=== PATIENT | male | born 1970 | race Caucasian/White ===

== ENCOUNTER 2017-03-13 07:34 | Day surgery (SDC) | payer SELFPAY ==
--- NOTE | ~2017-03-13 | EGD ---
EGD REPORT [facility] [address] [address] NAME: GONZALES CARDENAS : [birth year] STATUS : REG [facility]#: [id number] AGE: 46 ADM/REG DATE : 03/13/17 MR#: [id number] REPORT SERV DATE: 03/13/17 DICTATED BY: TATA WATT DATE: 03/13/17 REPORT STATUS : Draft [facility]: [facility] DATE: 03/13/17 Pulmonology Patient Name: Gonzales Cardenas Procedure Date: 03/13/2017 10:04 AM Date of : 1970 Attending MD: JERICA WATT MD Procedure Date No Time: 03/13/2017 Procedure: Flexible/EBUS and Rigid Bronchoscopy with stent placement Indications: Right hilar lung mass, central airways obstruction, hemoptysis Providers: JERICA WATT MD Referring MD: IVIS SANCHEZ Medicines: Lidocaine 2% 20 mL Complications: No immediate complications. Estimated blood loss: None Procedure: Pre-Anesthesia Assessment: - ASA Grade Assessment: III - A patient with severe systemic disease. - After reviewing the risks and benefits, the patient was deemed in satisfactory condition to undergo the procedure. - A History and Physical has been performed. Patient meds and allergies have been reviewed. The risks and benefits of the procedure and the sedation options and risks were discussed with the patient. All questions were answered and informed consent was obtained. Patient identification and proposed procedure were verified prior to the procedure by the physician and the nurse in the procedure room. Mental Status Examination: alert and oriented. Airway Examination: normal oropharyngeal airway. Respiratory Examination: clear to auscultation and poor air movement. CV Examination: normal and RRR, no murmurs, no S3 or S4. ASA Grade Assessment: III - A patient with severe systemic disease. After reviewing the risks and benefits, the patient was deemed in satisfactory condition to undergo the procedure. The anesthesia plan was to use general anesthesia. Immediately prior to administration of medications, the patient was re-assessed for adequacy to receive sedatives. The heart rate, respiratory rate, oxygen saturations, blood pressure, adequacy of pulmonary ventilation, and response to care were monitored throughout the procedure. The physical status of the patient was re-assessed after the procedure. After obtaining informed consent, the [id number] EGD REPORT [address] [address] NAME: GONZALES CARDENAS : [birth year] STATUS : REG [facility] [place] [place]#: [id number] AGE: 46 ADM/REG DATE : 03/13/17 MR#: [id number] REPORT SERV DATE: 03/13/17 DICTATED BY: TATA WATT DATE: 03/13/17 REPORT STATUS : Draft TRANSCRIBED BY: [employer] [facility] DATE: 03/13/17 was introduced through the mouth, via the endotracheal tube (the patient was intubated for the procedure) and advanced to the tracheobronchial tree. the Bronchoscope was introduced through the and advanced to the. The procedure was accomplished without difficulty. The patient tolerated the procedure well. Findings: The endotracheal tube is in good position. The visualized portion of the trachea is of normal caliber. The merry is sharp. The tracheobronchial tree was examined to at least the first subsegmental level. Endobronchial disease noted throughout the CHEMA and RBI with complete obliteration of the RUL. EBUS TBNA of lymph node level 7 x 9 passes for cytology EBUS TBNA of lymph node level 4R x 6 passes for cytology Brushings were obtained in the right mainstem bronchus of the lung and sent for routine cytology. One sample was obtained. Endobronchial biopsies were performed in the right mainstem bronchus of the lung using a forceps and sent for histopathology examination. Four samples were obtained. Bronchoalveolar lavage was performed in the right upper lobe of the lung and sent for routine cytology. 60 mL of fluid were instilled. 20 mL were returned. The return was blood-tinged and cellular. The FiO2 was lowered to less than 40% and argon plasma coagulation therapy (0.8 L/min, 15 George) was performed for destruction of tissue and hemostasis. Using Fieldglass CRE balloons 8-9-10 and 10-11-12 the airway was dilated to 12 mm. The FiO2 was then raised to 100% and the patient was then reintubated with Rigid Dumon 12 mm bronchoscope in the usual atraumatic fashion and selectively advanced into the proximal right mainstem. A custom 12 x 40 silicone stent was placed but buckled at the distal portion despite several attempts at balloon dilation. The silicone stent was then removed and a Kidamom Endotek 10 x 40 hybrid stent was placed. Pictures were taken at the close of the case and patient was then reintubated with 8.5 ETT. Impression: Rapid On-Site Evaluation (LLOYD): Preliminary cytology is POSITIVE FOR NON SMALL CELL LUNG CANCER (final results are pending). Recommendation: - Await test results. - Chest X-ray post-procedure. - PET scan. - MRI of the brain with and without contrast - Thoracic Surgical, Medical and Radiation Oncology Consults - PFTs to assess operability - Follow up in our pulmonary clinic - Rx for mandatory nebs for albuterol and mucomyst. Attending Participation: I personally performed the entire procedure. EGD REPORT [facility] [address] [address] NAME: GONZALES CARDENAS : [birth year] STATUS : REG [facility] [place]#: [id number] AGE: 46 ADM/REG DATE : 03/13/17 MR#: [id number] REPORT SERV DATE: 03/13/17 DICTATED BY: TATA WATT DATE: 03/13/17 REPORT STATUS : Draft TRANSCRIBED BY: [employer] DATE: 03/13/17 JERICA WATT MD 03/13/2017 12:53 PM This report has been signed electronically. Number of Addenda: 0 Note Initiated On: 03/13/2017 10:04 AM [address] [address]
--- NOTE | ~2017-03-13 | CN ---
Consultation Report [place] [id number] [facility] [place] [address] NAME: GONZALES CARDENAS : [birth year] STATUS : REG [facility] [place] PAT#: [id number] AGE: 46 ADM/REG DATE : 03/13/17 MR#: [id number] REPORT SERV DATE: 03/13/17 DICTATED BY: SONY WATT DATE: 03/13/17 REPORT STATUS : Draft TRANSCRIBED BY: MODL DATE: 03/13/17 CONSULTATION DATE OF CONSULTATION: Dear Dr. Maya: Thank you for requesting my opinion regarding evaluation and management of Mr. Gonzales Cardenas' right hilar lung mass and hemoptysis. Mr. Cardenas is a pleasant 46-year-old gentleman with a history of heavy tobacco abuse and asthma, who presents to [facility] for formal evaluation of hemoptysis and a large right hilar lung mass with central airway obstruction. Mr. Cardenas states that over the past four months, he developed "a lot of coughing" well localized to the chest, nonradiating with no significant alleviating or exacerbating factors. He has had an intermittent teaspoon hemoptysis, and he has lost approximately eight pounds. REVIEW OF SYSTEMS: A detailed 14-point review of systems was completed. Pertinent positives and negatives are listed above. PAST MEDICAL HISTORY: 1. History of alcohol use/abuse. 2. Allergic asthma. 3. Heavy tobacco abuse. 4. Abnormal liver enzymes secondary to presumed alcohol use. PAST SURGICAL HISTORY: Inguinal hernia repair. FAMILY HISTORY: Alcohol abuse and diabetes. SOCIAL HISTORY: The patient is a heavy smoker. He is . He denies any significant illicit drug abuse. He does have a history of heavy alcohol use. ALLERGIES: NO KNOWN DRUG ALLERGIES. HOME MEDICATIONS: Reviewed and located in the paper chart. PHYSICAL EXAMINATION: VITAL SIGNS: Reviewed and located in the paper chart. GENERAL: No acute distress. Able to communicate in full paragraphs at a time. Cachectic appearing, thin, approximately 130 pounds. HEENT: Normocephalic, atraumatic. Pupils are equal, round, and reactive to light and accommodation. Posterior oropharynx is clear. High arched palate. NECK: No JVD. No LAD. Thin neck. CARDIOVASCULAR: Regular rate and rhythm. S1 and S2 present. Consultation Report [place] [id number] [facility] [place]. [address] NAME: GONZALES CARDENAS : [birth year] STATUS : REG [facility] [place] PAT#: [id number] AGE: 46 ADM/REG DATE : 03/13/17 MR#: [id number] REPORT SERV DATE: 03/13/17 DICTATED BY: SONY WATT DATE: 03/13/17 REPORT STATUS : Draft TRANSCRIBED BY: MODL DATE: 03/13/17 LUNGS: Diminished breath sounds bilaterally. Coarse breath sounds on the right. ABDOMEN: Nontender. Nondistended. Soft. Positive bowel sounds. EXTREMITIES: No clubbing, cyanosis, or edema. SKIN: No new rashes, lesions, or ulcers. PSYCHIATRIC: Alert and oriented x3. Appropriate mood and affect. Appropriate insight and judgment. NEUROLOGIC: 5/5 strength in upper and lower extremities. Cranial nerves 2 through 12 intact. Gait not tested. DTRs not performed. IMAGING: CT scan of the chest performed at [facility] was personally reviewed by me and I agree with the following interpretation, 6.5 x 5.5 x 5.6 cm right hilar mass extending to the merry with encasement or narrowing of the right mainstem, right bronchus intermedius, right middle lobe, and right main pulmonary artery with destruction of the right upper lobe pulmonary artery and that also encases and narrows the superior vena cava and abuts the right side of the trachea. The patient also has subsegmental atelectasis in the right upper lobe, right middle lobe, and some pulmonary nodules may represent areas of rounded atelectasis and satellite lung nodules. The findings are consistent with a primary bronchogenic carcinoma. ASSESSMENT AND PLAN: Mr. Gonzales Cardenas is a pleasant 46-year-old gentleman with significant past medical history of heavy tobacco abuse and alcohol use, who presents to [facility] for formal evaluation of hemoptysis and large right hilar lung mass. CT scan of the chest demonstrates a 6.5 cm right hilar mass encasing the right mainstem, right bronchus intermedius, and extending to the merry as well as narrowing of the right pulmonary artery and multiple enlarged mediastinal lymph nodes. The clinical and radiographic presentation is most consistent with advanced stage primary bronchogenic carcinoma. At this point, Mr. Cardenas is an appropriate diagnostic intervention and potential therapeutic intervention for central airways obstruction. We discussed in detail potential options for biopsy including thoracic surgical biopsy, CT-guided FNA and EBUS, flexible rigid bronchoscopy with possible airway stent placement. After discussing the risks, benefits, and alternatives to each of these procedures, we agreed to proceed forward with flexible rigid bronchoscopy with airway stent placement. The patient is aware that the procedure is associated with potential life-threatening risks including lung collapse, respiratory failure, and even . If the patient is found to have non-small cell lung cancer, we will likely place an airway stent. The patient is aware that rigid bronchoscopy itself is associated with additional risks including injury to the mouth, lips, teeth, gums, posterior oropharynx, voice box, neighboring organs including the esophagus, airway perforation, and airway fire. Other additional risks include C-spine injury and paralysis. RECOMMENDATIONS: A summary of my recommendations are as follows: 1. Proceed with flexible/EBUS/rigid bronchoscopy with possible airway stent placement. 2. Further recommendations to be placed in the postoperative and the operative report. Thank you for allowing me to participate in Mr. Cardenas' care. Consultation Report [address] [address] NAME: GONZALES CARDENAS : [birth year] STATUS : REG [facility] [place] PAT#: [id number] AGE: 46 ADM/REG DATE : 03/13/17 MR#: [id number] REPORT SERV DATE: 03/13/17 DICTATED BY: SONY WATT DATE: 03/13/17 REPORT STATUS : Draft TRANSCRIBED BY: RANOLDO DATE: 03/13/17 PAULA/ARNOLDO Sony Watt M.D. / [id number] CC: Na Walton M.D.
[~2017-03-13 07:34] MED LIST: IBU400 PO; MULTIPLE VIT PO; VENTOLIN HFA INH
[2017-03-13 08:18] LABS: BASOPHILS 0.2 %; BASOPHILS ABSOLUTE 0.02 10/3/uL (0.0-0.16); EOSINOPHILS 0.6 %; EOSINOPHILS ABSOLUTE 0.05 10/3/uL (0.0-0.53); HEMATOCRIT 41.1 % (40.0-51.0); HEMOGLOBIN 14.4 g/dL (13.6-17.8); IMMATURE GRANULOCYTES 0.2 %; IMMATURE GRANULOCYTES ABSOLUTE 0.02 10/3/uL (0.0-0.11); LYMPHOCYTES 23.6 %; LYMPHOCYTES ABSOLUTE 2.12 10/3/uL (0.67-4.30); MEAN CORPUSCULAR HEMOGLOB 33.5 pg (26.0-34.0); MEAN CORPUSCULAR VOLUME 95.6 fL (80-100); MEAN PLATELET VOLUME 8.8 fL (9.2-13.0); MONOCYTES 15.4 %; MONOCYTES ABSOLUTE 1.38 10/3/uL (0.21-1.20); NEUTROPHILS ABSOLUTE 5.38 10/3/uL (2.02-8.40); PLATELET COUNT 217 10/3/uL (150-400); RBC DISTRIBUTION WIDTH 11.6 % (12.0-16.0)
[2017-03-13 08:19] LABS: MANUAL DIFF NO %
[2017-03-13 08:25] LABS: INTERNATIONAL NORMAL RATI 1.1 UNITS (-); PARTIAL THROMBO TIME 26.5 SEC (22.5-37.2); PROTIME (NOT ORD) 13.7 SEC (12.0-14.5)
[2017-05-01] MEDS ORDERED: MUCO10%4ML INH (04:17)
[2017-05-01] MEDS ORDERED: ZOFRAN8 PO (04:18)
[2017-05-01] MEDS ORDERED: DILAUDID8 MG PO (04:18)
[2017-05-01] MEDS ORDERED: AUG875 PO (04:19)
[2017-05-01] MEDS ORDERED: SUCR PO (04:20)
[2017-05-01] MEDS ORDERED: ACET500CAP PO (04:20)
[2017-05-01] MEDS ORDERED: SYMBICORT 160/41 INH INH (04:20)
[2017-05-01] MEDS ORDERED: LIOR10 PO (04:21)
[2017-05-01] MEDS ORDERED: MAGIC MOUTHWASH PO (04:21)
[2017-05-01] MEDS ORDERED: ALBUTEROL0.083 % INH (04:22)
[2017-05-01] MEDS ORDERED: MULTIVIT/MIN PO (04:22)
== END 2017-03-13 23:59 | disposition home or self-care (01) ==
LOC: DMU 07:34
PROVIDERS: Internal Medicine
PROC: 0BB38ZX Excision of Right Main Bronchus, Via Natural or Artificial Opening Endoscopic, Diagnostic (ICD-10-PCS; principal; 2017-03-13 10:00)
PROC: 07B74ZX Excision of Thorax Lymphatic, Percutaneous Endoscopic Approach, Diagnostic (ICD-10-PCS; 2017-03-13 10:00)
PROC: 0B9C8ZX Drainage of Right Upper Lung Lobe, Via Natural or Artificial Opening Endoscopic, Diagnostic (ICD-10-PCS; 2017-03-13 10:00)
PROC: 0B5 Respiratory System, Destruction (ICD-10-PCS; 2017-03-13 10:00)
PROC: 0B738DZ Dilation of Right Main Bronchus with Intraluminal Device, Via Natural or Artificial Opening Endoscopic (ICD-10-PCS; 2017-03-13 10:00)
DX: C77.1 Secondary and unspecified malignant neoplasm of intrathoracic lymph nodes (principal); C34.01 Malignant neoplasm of right main bronchus; J98.8 Other specified respiratory disorders; Z87.891 Personal history of nicotine dependence; Z98.890 Other specified postprocedural states
CPT/HCPCS: 71010; 85025; 85610; 85730; 88112; 88172; 88173; 88177; 88305; 88333; 88341; 88342; 88344; 93005; A9270-GY; C1725; C1874; C1876; J2250; J2370; J2405; J2710; J3010

== ENCOUNTER 2017-03-20 10:07 | Inpatient (IN) | payer SELFPAY ==
--- NOTE | ~2017-03-20 | PUL ---
[facility] [address] [place]. [address] NAME: RASHEL CARDENAS : [birth year] STATUS : ADM IN [facility]#: [id number] AGE: 46 ADM/REG DATE : 03/20/17 MR#: [id number] REPORT SERV DATE: 03/23/17 DICTATED BY: MARYBETH BARCENAS IV DATE: 03/22/17 REPORT STATUS : Draft TRANSCRIBED BY: MODL DATE: 03/22/17 PULMONARY FUNCTION TEST SPIROMETRY AND DIFFUSING CAPACITY MEASUREMENT REASON FOR REQUEST: Lung cancer. FINDINGS: Baseline spirometry demonstrates a low FVC, FEV1, and FEV1/FVC ratio. The diffusing capacity is reduced, however, does normalize with the measured alveolar volume. IMPRESSION: 1. Severe obstructive ventilatory defect. FEV1 is 1.68 L or 46% of predicted. The low vital capacity measurement may be secondary to the obstructive process; however, a concomitant restrictive process cannot be excluded without formal lung volumes. 2. Severe reduction in the diffusion capacity with a measured DLCO of 15.1 mL/mmHg per minute or 50% of predicted. JHON/ARNOLDO Marybeth Barcenas IV, M.D. / [id number] CC: Na Beck M.D.
--- NOTE | ~2017-03-20 | CN ---
Consultation Report [facility] [address] [place]. [address] NAME: RASHEL CARDENAS : [birth year] STATUS : ADM IN PAT#: [id number] AGE: 46 ADM/REG DATE : 03/20/17 MR#: [id number] REPORT SERV DATE: 03/21/17 DICTATED BY: MARYBETH SMALLS IV DATE: 03/20/17 REPORT STATUS : Draft TRANSCRIBED BY: MODL DATE: 03/20/17 PULMONARY CONSULTATION DATE OF CONSULTATION: 03/20/2017 REASON FOR REQUEST: Squamous cell carcinoma of the lung, with chest radiographic changes, and increased sputum production. HISTORY OF PRESENT ILLNESS: History was obtained from the records and from the patient. Mr. Cardenas is a 46-year-old, male, with a recently diagnosed stage III squamous cell carcinoma of the lung, and possibly stage IV, alcohol/tobacco dependency, and asthma, who presents with increased cough, sputum production, and changes on chest radiograph. The patient developed hemoptysis with increased cough and weight loss for which he had radiographic abnormalities consistent with a right hilar mass. The patient underwent bronchoscopy by Dr. Gutierres on 03/13/2017, demonstrating poorly differentiated squamous cell carcinoma with airway involvement. The patient had placement of a stent with by report essential obstruction of the right upper lobe bronchus by the tumor. The patient has been relatively compliant with his Mucomyst twice a day, has been compliant with his albuterol four times a day. He has had increased sputum production following the procedure that was clear, though became brown the day of presentation. He continued to have occasional streaks of blood. In the emergency room, a chest x-ray was obtained, which demonstrated increased infiltrate in the right suprahilar region with what appears to be cavitation. The patient was placed on Vanco and cefepime which he things almost provided immediate help. He denies any fevers, chills, or sweats. The patient has not required supplemental oxygen. PULMONARY HISTORY: Remarkable for childhood asthma which has persisted into adulthood. He has never had pneumonia. He is a [id number]-ssno smoker, who reportedly quit several weeks ago. He works as a contractor. He has refused immunizations in the past. PAST MEDICAL HISTORY: 1. Stage III squamous cell carcinoma of the lung. 2. Alcohol and tobacco dependency. 3. Asthma. PAST SURGICAL HISTORY: He had inguinal hernia repair and recent rigid bronchoscopy with stent placement. ALLERGIES: THERE ARE NO KNOWN DRUG ALLERGIES. CURRENT MEDICATIONS: The patient is on heparin 5000 units q.8 hours, Maxipime 1 g q.6 hours, Mucomyst every 8 hours, Proventil every 6 hours, and multivitamin daily. SOCIAL HISTORY: Remarkable for the tobacco use as above. The patient drank up to a 12 pack of beer a day, though reportedly quit this as well several weeks ago. He denies to me any Consultation Report [address] [place]. [address] NAME: RASHEL CARDENAS : [birth year] STATUS : ADM IN PAT#: [id number] AGE: 46 ADM/REG DATE : 03/20/17 MR#: [id number] REPORT SERV DATE: 03/21/17 DICTATED BY: MARYBETH SMALLS IV DATE: 03/20/17 REPORT STATUS : Draft TRANSCRIBED BY: ARNOLDO DATE: 03/20/17 illicit drug use. However, other sources note that he has used heroin, cocaine, and marijuana in the past. He denies IV drug use and I see no henriquez. He is and has one child. FAMILY HISTORY: Remarkable for maternal grandfather, who was an alcoholic, and a maternal uncle who is diabetic. REVIEW OF SYSTEMS: 14-systems reviewed and pertinent positives as noted above. PHYSICAL EXAMINATION: GENERAL: This is a thin, middle-aged male, appearing older than his stated age, in no current distress. VITAL SIGNS: Temperature 98.3, pulse is 98, respiratory rate is 22, saturations 93% on room air. Blood pressure is 126/62. HEENT: Normocephalic and atraumatic. Extraocular movements are intact. Pupils react to light. Sclerae and conjunctivae normal. He has no drainage from either nasal passage. He has multiple missing teeth, with eroded teeth, and gingival disease. He has a Mallampati 2 airway with narrowing of the posterior pharyngeal space. NECK: Without any palpable lymphadenopathy or thyromegaly. CHEST: The patient has decreased breath sounds bilaterally. There are few inspiratory crackles on the left. There are some inspiratory squeaks with expiratory rhonchi. Inspiratory and expiratory rhonchi were predominantly in the mid lung field. No true wheezes are noted. CARDIOVASCULAR: Jugular venous pulsations appear to be approximately 5 to 6 cm. He has a tachycardic S1 and S2, with no clear murmur or S3. Peripheral pulses are intact. He has 2+ carotid upstrokes. No obvious bruit. ABDOMEN: Soft and nontender. There are hypoactive bowel sounds. There is no palpable hepatosplenomegaly or masses. EXTREMITIES: Demonstrate no cyanosis, clubbing, edema, or palpable cords. NEUROLOGIC: Strength is 5/5 and sensation intact to light touch. LABORATORY DATA: Chest x-ray demonstrates the stent to be in position in the right mainstem bronchus into the bronchus intermedius. There was a right hilar mass. There is new infiltrate and what appeared to be the posterior segment of the right upper lobe with what appears to be a cavity. CBC: Hemoglobin 11.5, hematocrit 32.7, platelet count was 216,000, and white blood cell count 14.4, which is up from his recent discharge. Sodium is 130, potassium 3.8, chloride 95, bicarbonate 27, BUN 11, creatinine 0.57, lactate is 1, glucose of 106, calcium is 9, total protein is 7.1, and albumin is 2.4, AST is 159, ALT is 88. No previous labs demonstrated a positive hep C antibody panel. ASSESSMENT AND PLAN: 1. Respiratory. The patient has prior postobstructive pneumonia, possibly in the area of the right upper lobe. There appears to be some cavitation. Sputum has been sent. Blood cultures been sent. Antibiotics as noted below. We will add Dulera with his Consultation Report [address] [place]. [address] NAME: RASHEL CARDENAS : 66 STATUS : ADM IN [facility]#: [id number] AGE: 46 ADM/REG DATE : 03/20/17 MR#: [id number] REPORT SERV DATE: 03/21/17 DICTATED BY: MARYBETH SMALLS IV DATE: 03/20/17 REPORT STATUS : Draft TRANSCRIBED BY: ARNOLDO DATE: 03/20/17 history of asthma two puffs twice a day. We will be given prednisone 40 mg daily for five days. Albuterol and Mucomyst will both be continued. Oxygen will be provided if needed to maintain saturations greater than or equal to 90%. A chest CT scan with contrast will be obtained tonight. 2. Infectious disease. Cefepime will be changed to Zosyn to better cover postobstructive organisms. Sputum has been sent. Blood cultures have been sent. Procalcitonin level be added to blood in the lab. Hepatitis C RNA titers will be obtained with probable chronic active hepatitis C. Florastor will be given one twice a day, and Pneumovax at the time of discharge. 3. Renal. I will check urine osmolality and urine sodium, with hyponatremia. We will replace the patient's potassium. Magnesium, and phosphate level will be obtained and replaced as indicated. 4. Neurologic. Despite his claims to have stop drinking, thiamine will be given 200 mg for five days. We will watch for withdrawal. Pain management, the patient does not want Habitrol patch. 5. Hematologic. Heparin subcutaneous for deep vein thrombosis prophylaxis. Thank you for consulting us. We will follow the patient with you. JHON/MODL Marybeth Smalls IV, M.D. / [id number] CC: Na Beck M.D.
--- NOTE | ~2017-03-20 | HP ---
History And Physical [address] [place]. [address] NAME: RASHEL CARDENAS : [birth year] STATUS : ADM IN PAT#: [id number] AGE: 46 ADM/REG DATE : 03/20/17 MR#: [id number] REPORT SERV DATE: 03/21/17 DICTATED BY: TRINITY PINEDA DATE: 03/20/17 REPORT STATUS : Draft TRANSCRIBED BY: MODL DATE: 03/20/17 DATE OF ADMISSION: 03/20/2017 REASON FOR ADMISSION: Lung cancer, postobstructive pneumonia. HISTORY OF PRESENT ILLNESS: This is a 46-year-old white male who was diagnosed with lung cancer last week by Dr. Gutierres. There was obstructive pneumonia, and the patient was sent to Dr. Gutierres for stent to be placed. 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 He was also going to have a PET scan this week, but has not had that done yet. He was sent to Dr. Johnson for consideration for radiation therapy. He has a history of tobacco abuse. He quit cigarettes about one month ago and quit alcohol two weeks ago. He presented with a 15-pound weight loss and hemoptysis. CT scan of his chest showed a 6.5 cm right hilar mass extending to the merry, encasing the right mainstem bronchus. After bronchoscopy and biopsy, stent was placed on 03/13/2017. He has had problems with pain in his back in the center part since that time. He began having rhonchi and cough two days ago. He has had fever and chills for the last 48 hours according to his though he denies this. He was seen by Dr. Aguilar and scheduled for PET-CT and MRI. He was seen by Dr. Johnson on 03/19/2017 and comes back to the emergency room with fever, chills, sweats, rhonchi, and back pain after the stenting for evaluation. He was seen in the emergency room by Krystyna, nurse practitioner, who did CT scan of the chest, now showing consolidation in larger amount in the area. PAST MEDICAL HISTORY: Tobacco abuse, reformed. Alcohol abuse, reformed. Hepatitis C is significant. He worked as a topete. He is a member of the [employer]. He has had a hernia repair in the remote past, but really never been in the hospital. HOME MEDICATIONS: Include the following: Mucomyst 4 mL every eight hours, albuterol, aerosols every eight hours, multivitamins, and promethazine for nausea. ALLERGIES: NO KNOWN. SOCIAL HISTORY: He is . Lives with his . He is a retired topete, used to work for [employer] in [place], [place], but he is from [place] originally. He lives in [facility] after having his . They live out of a motor home and camp at [place] and travel all over the place, fishing and camping. FAMILY HISTORY: Grandmother with lung cancer. Grandfather with lung cancer as well. Both were smokers also. He had a brother who from lung cancer. REVIEW OF SYSTEMS: Chest pain behind the back, cough productive of clear and occasionally light brown material, History And Physical [address] [address] NAME: RASHEL CARDENAS : 66 STATUS : ADM IN [facility]#: [id number] AGE: 46 ADM/REG DATE : 03/20/17 MR#: [id number] REPORT SERV DATE: 03/21/17 DICTATED BY: TRINITY PINEDA DATE: 03/20/17 REPORT STATUS : Draft TRANSCRIBED BY: ARNOLDO DATE: 03/20/17 some fever, chills. No stiff neck. No melena, hematemesis, fits, seizures, convulsions, unilateral weakness, nausea, vomiting, or diarrhea. The remainder of the review of systems is negative. PHYSICAL EXAMINATION: VITAL SIGNS: His blood pressure was 140/70, heart rate 88, respiratory rate 16, afebrile. HEENT: EOMI. Sclerae clear. Conjunctivae pink. NECK: No bruit without any JVD. CHEST: Rhonchi throughout both lungs bilaterally, inspiratory and expiratory. HEART: Regular S1, S2 without murmur, gallop, or click. ABDOMEN: Soft, nontender. Bowel sounds positive. No HSM. EXTREMITIES: Have no edema. Distal pulses are palpable, dorsalis pedis and posterior tibial. NEUROLOGIC: He withdraws to plantar stimulation. Funeral Assistant is equal and symmetric bilaterally. Coordination is intact. He has no tremor. ASSESSMENT: 1. Postobstructive pneumonia. He had a right lung mass encasing the right mainstem bronchus. Stent was placed. Pain in the back since that time. Was to have radiation therapy and chemotherapy. We will consult Pulmonary. I suspect this may be a hospital- acquired equivalent pneumonia since he was instrumented only on 03/13/2017 and may have a pneumonia distal to the place where the stent was placed if the stent is still patent. He may need bronchoscopy for that so therefore we will go ahead and consult Pulmonary for this. 2. Lung cancer, large right upper lobe and right hilar, squamous cell. 3. Status post instrumentation. 4. Chest pain since stenting. 5. Febrile illness consistent with pneumonia. The patient was 5 feet 5 inches with a weight of 131 pounds, but he lost about 10 pounds in the last three months. Presented with hemoptysis initially. We will treat with cefepime and vancomycin. Consult Pulmonary for additional adjustments and changes in the diagnostic and treatment regimen. DB/ARNOLDO Trinity Pineda M.D. / [id number] CC: Abhilash Maya M.D. History And Physical [address] [address] NAME: RASHEL CARDENAS : 66 STATUS : ADM IN [facility]#: [id number] AGE: 46 ADM/REG DATE : 03/20/17 MR#: [id number] REPORT SERV DATE: 03/21/17 DICTATED BY: TRINITY PINEDA DATE: 03/20/17 REPORT STATUS : Draft TRANSCRIBED BY: MODClement DATE: 03/20/17 MD Jas Love MD Krishnendu Bhadra, M.D.
--- NOTE | ~2017-03-20 | DS ---
Discharge Summary [facility] [address] [place]. [address] NAME: RASHEL CARDENAS : 66 STATUS : DIS IN PAT#: [id number] AGE: 46 ADM/REG DATE : 03/20/17 MR#: [id number] REPORT SERV DATE: 03/24/17 DICTATED BY: NORM NICHOLAS DATE: 03/23/17 REPORT STATUS : Draft TRANSCRIBED BY: MODL DATE: 03/23/17 ADMISSION DATE: 03/20/2017 DISCHARGE DATE: 03/23/2017 DISCHARGE DIAGNOSES: 1. Post-obstructive pneumonia. 2. Chronic obstructive pulmonary disease exacerbation. 3. Stage III lung cancer. 4. Gastroesophageal reflux. 5. Hypoxic respiratory failure, acute, now resolved. 6. History of hepatitis C. CONSULTANTS DURING THIS HOSPITALIZATION: Dr. Quentin Smalls of Pulmonology. INVASIVE PROCEDURES DONE DURING THIS HOSPITALIZATION: None. BRIEF HISTORY OF PRESENT ILLNESS: The patient 46-year-old male, presented with lung cancer and postobstructive pneumonia and encasing the left mainstem bronchus. So, he was admitted. For detailed history and physical exam, please see note dictated by Dr. Solitario Johnson in 03/20/2017. HOSPITAL COURSE: After being admitted to the hospital, this patient was given aggressive nebulizing treatments. He had hypoxic respiratory failure, so he was given oxygen support. Over time, we were successfully able to wean his oxygen. He is post-obstructive pneumonia. He was treated with broad-spectrum antibiotics including Zosyn and vancomycin. This patient continued to improve, and we had not been able to wean him off his O2. He is ambulatory and MRI of the brain was done to rule out metastatic disease to the brain which was negative. Dr. Aguilar saw the patient in consultation as well and did not recommend any therapy. This patient was already mapped for radiation therapy by Dr. Johnson, which we will start once his pneumonia is improved or resolved. Dr. Smalls at this time has recommended that he could go home on oral antibiotics with a minimum of three weeks of antibiotics because of this post- obstructive pneumonia and abscess. This patient remained stable otherwise medically and he is ready to be discharged. DISCHARGE DISPOSITION: Home. DISCHARGE ACTIVITY: As tolerated. DISCHARGE DIET: Low-sodium diet. DISCHARGE MEDICATIONS: Multivitamins one tablet once daily, Florastor one capsule twice daily, prednisone 40 mg once daily for three more days, Mucomyst as needed, albuterol one neb every eight hours and q.2 hours as needed, Symbicort 160/4.5 two puffs b.i.d., Augmentin 875 p.o. b.i.d. for a total of three weeks. DISCHARGE FOLLOWUP: With Dr. John Paul Aguilar as scheduled by him, with Dr. Abhilash Maya Discharge Summary [address] [address] NAME: RASHEL CARDENAS : 66 STATUS : DIS IN PAT#: [id number] AGE: 46 ADM/REG DATE : 03/20/17 MR#: [id number] REPORT SERV DATE: 03/24/17 DICTATED BY: NORM NICHOLAS DATE: 03/23/17 REPORT STATUS : Draft TRANSCRIBED BY: ARNOLDO DATE: 03/23/17 in one week, and with Dr. Gutierres as needed. More than 30 minutes spent planning this patient's discharge, reconciling medications, writing prescriptions, discussing hospital care with the patient and the family at the bedside, and documenting this discharge. DICTATED BY: Na Beck/ARNOLDO Norm Nicholas M.D. / [id number] CC: Na Beck M.D. Jonathan T Whaley, MD Krishnendu Bhadra, M.D. Benjamin R Nadeau, MD
[2017-03-20 11:18] LABS: BASOPHILS 0.1 %; BASOPHILS ABSOLUTE 0.01 10/3/uL (0.0-0.16); EOSINOPHILS 0 %; IMMATURE GRANULOCYTES 0.6 %; IMMATURE GRANULOCYTES ABSOLUTE 0.08 10/3/uL (0.0-0.11); LYMPHOCYTES 6.5 %; LYMPHOCYTES ABSOLUTE 0.93 10/3/uL (0.67-4.30); MEAN CORPUS HGB CONC 35.2 g/dL (32.0-36.0); MEAN CORPUSCULAR HEMOGLOB 32.6 pg (26.0-34.0); MEAN PLATELET VOLUME 8.8 fL (9.2-13.0); MONOCYTES 12.3 %; MONOCYTES ABSOLUTE 1.77 10/3/uL (0.21-1.20); NEUTROPHILS 80.5 %; NEUTROPHILS ABSOLUTE 11.58 10/3/uL (2.02-8.40); PLATELET COUNT 216 10/3/uL (150-400); RBC DISTRIBUTION WIDTH 11.5 % (12.0-16.0); RED CELL COUNT 3.53 10/6/uL (4.7-6.1)
[2017-03-20 11:19] LABS: ER CBC TAT 0 Hrs 07 Mins; HEMATOCRIT 32.7 % (40.0-51.0); HEMOGLOBIN 11.5 g/dL (13.6-17.8); MANUAL DIFF NO %; MEAN CORPUSCULAR VOLUME 92.6 fL (80-100); WHITE BLOOD CELLS 14.4 10/3/uL (4.5-10.5)
[2017-03-20 11:33] LABS: BUN (BLOOD UREA NITROGEN) 11 MG/DL (6-23); CHLORIDE, SERUM 95 MMOL/L (96-112); CO2 (CARBON DIOXIDE) 27 MMOL/L (24-34); CREATININE 0.59 MG/DL (0.70-1.30); GFR AFRICAN AMERICAN 139 ML/MIN (>=60); GFR NON AFRICAN AMERICAN 120 ML/MIN (>=60); POTASSIUM, SERUM 3.8 MMOL/L (3.5-5.3); SGOT(AST) 159 U/L (5-40); SGPT(ALT) 88 U/L (5-65); SODIUM, SERUM 130 MMOL/L (135-148); TOTAL BILIRUBIN 0.9 MG/DL (0-1.2); TOTAL PROTEIN 7.1 G/DL (6.0-8.5)
[2017-03-20 11:34] LABS: A/G RATIO 0.5 (0.7-1.9); ALBUMIN 2.4 G/DL (3.5-5.0); ALKALINE PHOSPHATASE 55 U/L (45-117); GLOBULIN 4.7 G/DL (2.5-4.1); GLUCOSE, SERUM 106 MG/DL (60-99)
[2017-03-20] MEDS ORDERED: ALBUTEROL0.083 % INH ×2 (12:23)
[2017-03-20] MEDS ORDERED: MUCO10%4ML INH ×2 (12:24)
[2017-03-20] MEDS ORDERED: PR25 PO (12:24)
[2017-03-20] MEDS ORDERED: THERGRANM PO (12:24)
[2017-03-20 23:56] LABS: SODIUM, URINE 10 MEQ/L
[2017-03-20 23:59] LABS: OSMOLALITY, URINE 615 MOSM/KG (50-1200)
[2017-03-21 05:12] LABS: BUN (BLOOD UREA NITROGEN) 8 MG/DL (6-23); CALCIUM, SERUM 8.5 MG/DL (8.5-10.4); CHLORIDE, SERUM 99 MMOL/L (96-112); CO2 (CARBON DIOXIDE) 25 MMOL/L (24-34); CREATININE 0.61 MG/DL (0.70-1.30); GFR AFRICAN AMERICAN 137 ML/MIN (>=60); GFR NON AFRICAN AMERICAN 118 ML/MIN (>=60); GLUCOSE, SERUM 145 MG/DL (60-99); PHOSPHORUS, SERUM 3.7 MG/DL (2.5-4.5); POTASSIUM, SERUM 3.9 MMOL/L (3.5-5.3); SODIUM, SERUM 133 MMOL/L (135-148)
[2017-03-21 05:37] LABS: BASOPHILS 0 %; EOSINOPHILS 0 %; HEMATOCRIT 32.2 % (40.0-51.0); HEMOGLOBIN 11.2 g/dL (13.6-17.8); IMMATURE GRANULOCYTES 0.4 %; IMMATURE GRANULOCYTES ABSOLUTE 0.04 10/3/uL (0.0-0.11); LYMPHOCYTES 5.1 %; LYMPHOCYTES ABSOLUTE 0.52 10/3/uL (0.67-4.30); MEAN CORPUS HGB CONC 34.8 g/dL (32.0-36.0); MEAN CORPUSCULAR HEMOGLOB 32.6 pg (26.0-34.0); MEAN CORPUSCULAR VOLUME 93.6 fL (80-100); MEAN PLATELET VOLUME 9.1 fL (9.2-13.0); MONOCYTES 6.2 %; MONOCYTES ABSOLUTE 0.63 10/3/uL (0.21-1.20); NEUTROPHILS 88.3 %; NEUTROPHILS ABSOLUTE 8.91 10/3/uL (2.02-8.40); PLATELET COUNT 221 10/3/uL (150-400); RBC DISTRIBUTION WIDTH 11.5 % (12.0-16.0); RED CELL COUNT 3.44 10/6/uL (4.7-6.1); WHITE BLOOD CELLS 10.1 10/3/uL (4.5-10.5)
[2017-03-21 05:38] LABS: MANUAL DIFF NO %
[2017-03-22 06:55] LABS: BASOPHILS 0 %; EOSINOPHILS 0 %; HEMATOCRIT 30.7 % (40.0-51.0); HEMOGLOBIN 10.5 g/dL (13.6-17.8); IMMATURE GRANULOCYTES 0.4 %; IMMATURE GRANULOCYTES ABSOLUTE 0.04 10/3/uL (0.0-0.11); LYMPHOCYTES 9.2 %; LYMPHOCYTES ABSOLUTE 0.88 10/3/uL (0.67-4.30); MEAN CORPUS HGB CONC 34.2 g/dL (32.0-36.0); MEAN CORPUSCULAR HEMOGLOB 32.3 pg (26.0-34.0); MEAN CORPUSCULAR VOLUME 94.5 fL (80-100); MONOCYTES 7.3 %; NEUTROPHILS 83.1 %; NEUTROPHILS ABSOLUTE 7.91 10/3/uL (2.02-8.40); PLATELET COUNT 205 10/3/uL (150-400); RBC DISTRIBUTION WIDTH 11.4 % (12.0-16.0); RED CELL COUNT 3.25 10/6/uL (4.7-6.1); WHITE BLOOD CELLS 9.5 10/3/uL (4.5-10.5)
[2017-03-22 06:56] LABS: MANUAL DIFF NO %
[2017-03-22 07:15] LABS: BUN (BLOOD UREA NITROGEN) 8 MG/DL (6-23); CALCIUM, SERUM 8.4 MG/DL (8.5-10.4); CHLORIDE, SERUM 104 MMOL/L (96-112); CO2 (CARBON DIOXIDE) 27 MMOL/L (24-34); CREATININE 0.48 MG/DL (0.70-1.30); GFR AFRICAN AMERICAN 151 ML/MIN (>=60); GFR NON AFRICAN AMERICAN 130 ML/MIN (>=60); GLUCOSE, SERUM 97 MG/DL (60-99); POTASSIUM, SERUM 3.3 MMOL/L (3.5-5.3); SODIUM, SERUM 138 MMOL/L (135-148); VANCOMYCIN TROUGH 8.5 MCG/ML (10.0-20.0)
[2017-03-23 02:13] LABS: HCV RNA VIRAL LOAD 5.3 (NOTDET)
[2017-03-23 06:47] LABS: BASOPHILS 0 %; EOSINOPHILS 0 %; HEMATOCRIT 31.7 % (40.0-51.0); HEMOGLOBIN 10.8 g/dL (13.6-17.8); IMMATURE GRANULOCYTES 0.3 %; IMMATURE GRANULOCYTES ABSOLUTE 0.03 10/3/uL (0.0-0.11); LYMPHOCYTES 8.7 %; LYMPHOCYTES ABSOLUTE 0.84 10/3/uL (0.67-4.30); MANUAL DIFF NO %; MEAN CORPUS HGB CONC 34.1 g/dL (32.0-36.0); MEAN CORPUSCULAR HEMOGLOB 32.2 pg (26.0-34.0); MEAN CORPUSCULAR VOLUME 94.6 fL (80-100); MEAN PLATELET VOLUME 9.3 fL (9.2-13.0); MONOCYTES 7.9 %; MONOCYTES ABSOLUTE 0.77 10/3/uL (0.21-1.20); NEUTROPHILS 83.1 %; NEUTROPHILS ABSOLUTE 8.05 10/3/uL (2.02-8.40); PLATELET COUNT 251 10/3/uL (150-400); RBC DISTRIBUTION WIDTH 11.5 % (12.0-16.0); RED CELL COUNT 3.35 10/6/uL (4.7-6.1); WHITE BLOOD CELLS 9.7 10/3/uL (4.5-10.5)
[2017-03-23 07:03] LABS: BUN (BLOOD UREA NITROGEN) 6 MG/DL (6-23); CALCIUM, SERUM 8.6 MG/DL (8.5-10.4); CHLORIDE, SERUM 102 MMOL/L (96-112); CO2 (CARBON DIOXIDE) 28 MMOL/L (24-34); CREATININE 0.46 MG/DL (0.70-1.30); GFR AFRICAN AMERICAN 154 ML/MIN (>=60); GFR NON AFRICAN AMERICAN 133 ML/MIN (>=60); PHOSPHORUS, SERUM 2.9 MG/DL (2.5-4.5); POTASSIUM, SERUM 3.9 MMOL/L (3.5-5.3); SODIUM, SERUM 136 MMOL/L (135-148)
[2017-03-23 07:23] LABS: GLUCOSE, SERUM 117 MG/DL (60-99)
[2017-03-23 08:19] LABS: PROCALCITONIN 1.15 ng/mL (<0.5)
[2017-03-23] MEDS ORDERED: P10 PO (10:34)
[2017-03-23] MEDS ORDERED: AUG875 PO (10:35)
[2017-03-23] MEDS ORDERED: SYMBICORT 160/41 INH INH (10:36)
[2017-05-01] MEDS ORDERED: MUCO10%4ML INH (04:17)
[2017-05-01] MEDS ORDERED: ZOFRAN8 PO (04:18)
[2017-05-01] MEDS ORDERED: DILAUDID8 MG PO (04:18)
[2017-05-01] MEDS ORDERED: AUG875 PO (04:19)
[2017-05-01] MEDS ORDERED: SUCR PO (04:20)
[2017-05-01] MEDS ORDERED: ACET500CAP PO (04:20)
[2017-05-01] MEDS ORDERED: SYMBICORT 160/41 INH INH (04:20)
[2017-05-01] MEDS ORDERED: LIOR10 PO (04:21)
[2017-05-01] MEDS ORDERED: MAGIC MOUTHWASH PO (04:21)
[2017-05-01] MEDS ORDERED: ALBUTEROL0.083 % INH (04:22)
[2017-05-01] MEDS ORDERED: MULTIVIT/MIN PO (04:22)
== END 2017-03-23 13:03 | disposition home or self-care (01) | DRG 180 ==
LOC: ER 10:07 → 4SO 13:22
PROVIDERS: Internal Medicine; Internal Medicine Critical Care Medicine; Nurse Practitioner
DX: C34.11 Malignant neoplasm of upper lobe, right bronchus or lung (principal); J18.8 Other pneumonia, unspecified organism; J96.01 Acute respiratory failure with hypoxia; E46 Unspecified protein-calorie malnutrition; J44.0 Chronic obstructive pulmonary disease with (acute) lower respiratory infection; C34.01 Malignant neoplasm of right main bronchus; D63.0 Anemia in neoplastic disease; E87.1 Hypo-osmolality and hyponatremia; J44.1 Chronic obstructive pulmonary disease with (acute) exacerbation; Y95 Nosocomial condition; Z87.891 Personal history of nicotine dependence; F10.21 Alcohol dependence, in remission; Z86.19 Personal history of other infectious and parasitic diseases; Z68.21 Body mass index [BMI] 21.0-21.9, adult; K21.9 Gastro-esophageal reflux disease without esophagitis
CPT/HCPCS: 70553; 71020; 71260; 80048; 80053; 80069; 80202; 83605; 83735; 83935; 84100; 84145; 84300; 85025; 87040; 87070; 87205; 87389; 87522; 93005; 94010; 94640; 94729; 96374; 99285; A9270-GY; A9577; J0692; J1170; J2405; J2543; J3370; J3411; Q9967